=== PATIENT | male | born 1960 | race Caucasian/White ===

== ENCOUNTER 2021-09-23 19:43 | Emergency (ER) | payer OTHER ==
[~2021-09-23] VITALS: Ht 190.5 cm; Wt 104.5 kg
[2021-09-23 22:33] VITALS: BP 176/104; PULSE 87; TEMP 97.8
== END 2021-09-23 22:36 | disposition home or self-care (01) ==
LOC: COL.ER 19:43
DX: R04.0 Epistaxis (principal)